=== PATIENT | male | born 1990 | race African-American/Black ===

== ENCOUNTER 2017-09-26 13:48 | Outpatient (RCR) | payer OTHER | END 2017-09-27 14:14 | disposition home or self-care (01) | LOC: WSOH 13:48 | DX: S91.332A Puncture wound without foreign body, left foot, initial encounter (principal); Z23 Encounter for immunization; W45.0XXA Nail entering through skin, initial encounter; Y93.01 Activity, walking, marching and hiking; Y92.214 College as the place of occurrence of the external cause; Y99.0 Civilian activity done for income or pay ==